=== PATIENT | male | born 1985 | race Hispanic/Latino ===

== ENCOUNTER 2018-12-18 12:20 | Emergency (ER) | payer BC, OTHER ==
--- NOTE | 2018-12-18 14:31 | ER ---
Nurse's Notes [facility] Name: Matthew Stafford Jr Age: 33 yrs Sex: Male : 1985 Arrival Date: 12/18/2018 Time: 12:22 Bed 12 Private MD: Diagnosis: Sprain of ankle Presentation: 12/18 12:33 Presenting complaint: Patient states: "I fell from a ladder about 3 ft yesterday". Pt aa5 c/o pain to right ankle and right foot. Denies head injury, denies LOC. Transition of care: patient was not received from another setting of care. Onset of symptoms was December 17, 2018. Risk Assessment: Do you want to hurt yourself or someone else? Patient reports no desire to harm self or others. Initial Sepsis Screen: Does the patient meet any 2 criteria? No. Patient's initial sepsis screen is negative. Does the patient have a suspected source of infection? No. Patient's initial sepsis screen is negative. Care prior to arrival: None. 12:33 Acuity: SUMANTH 4 aa5 12:33 Method Of Arrival: Wheelchair aa5 Triage Assessment: 12:35 General: Appears comfortable, Behavior is calm, cooperative. aa5 Historical: - Allergies: 12:35 No Known Allergies; aa5 - PMHx: 12:35 Anxiety; aa5 - PSHx: 12:35 Tonsillectomy; aa5 - Immunization history:: Adult Immunizations up to date. - Social history:: Smoking status: Patient/guardian denies using tobacco. - Ebola Screening: : No symptoms or risks identified at this time. Screenin:40 Abuse screen: Denies threats or abuse. Denies injuries from another. Nutritional ss screening: No deficits noted. Tuberculosis screening: Never had TB. Fall Risk None identified. Assessment: 12:40 General: Appears comfortable, Behavior is calm, cooperative. Pain: Complains of pain in aa5 right ankle and right foot Pain currently is 5 out of 10 on a pain scale. Quality of pain is described as throbbing, Is continuous, Aggravated by increased activity, weight bearing. Neuro: Level of Consciousness is awake, alert, obeys commands, Oriented to person, place, time, situation. Cardiovascular: Patient's skin is warm and dry. Respiratory: Airway is patent Respiratory effort is even, unlabored, Respiratory pattern is regular, symmetrical. GI: No signs and/or symptoms were reported involving the gastrointestinal system. : No signs and/or symptoms were reported regarding the genitourinary system. EENT: No signs and/or symptoms were reported regarding the EENT system. Derm: Skin is pink, warm \\T\\ dry. Musculoskeletal: Swelling present in dorsum of right foot and right ankle. Vital Signs: 12:34 BP 102 / 67; Pulse 88; Resp 16 S; Temp 98.0(TE); Pulse Ox 99% on R/A; Weight 81.65 kg aa5 (R); Height 5 ft. 7 in. (170.18 cm) (R); Pain 5/10; 12:34 Body Mass Index 28.19 (81.65 kg, 170.18 cm) aa5 ED Course: 12:22 Patient arrived in ED. as 12:33 Arm band placed on. aa5 12:34 Triage completed. aa5 12:35 Terri Kilgore RN is Primary Nurse. aa5 12:35 Yuniel Choi PA is PHCP. [facility] 12:35 Bandar Butler MD is Attending Physician. [facility] 13:54 X-ray completed. Portable x-ray completed in exam room. Patient tolerated procedure jb2 well. 13:58 Foot Right 3 View XRAY In Process Unspecified. EDMS 13:58 Ankle Right 3 View XRAY In Process Unspecified. EDMS 14:24 Patient has correct armband on for positive identification. Bed in low position. Call ss light in reach. 14:24 No provider procedures requiring assistance completed. Patient did not have IV access ss during this emergency room visit. walking boot applied to R leg. Patient tolerated well. 14:30 Ozzie Howell MD is Referral Physician. ahmet Administered Medications: No medications were administered Outcome: 14:30 Discharge ordered by . [facility] 14:40 Discharged to home ambulatory. ss 14:40 Condition: good 14:40 Discharge instructions given to patient, Instructed on discharge instructions, follow up and referral plans. Demonstrated understanding of instructions, follow-up care. 14:51 Patient left the ED. ss Signatures: Dispatcher [employer] EDMS Yuniel Choi PA PA [facility] Skip Sandoval jb2 Heather Vega Audri, RN RN aa5 Flavia Anguiano RN RN ss Corrections: (The following items were deleted from the chart) 14:41 14:40 Reassessment: Patient appears in no apparent distress at this time. Patient ss and/or family updated on plan of care and expected duration. Pain level reassessed. Patient is alert, oriented x 3, equal unlabored respirations, skin warm/dry/pink. dressing applied to affected toe. ss
--- NOTE | 2018-12-18 14:31 | EDPHYS ---
Physician Documentation [facility] Name: Matthew Stafford Jr Age: 33 yrs Sex: Male : 1985 Arrival Date: 12/18/2018 Time: 12:22 Bed 12 Private MD: ED Physician Bandar Butler HPI: 12/18 12:54 This 33 yrs old Male presents to ER via Wheelchair with complaints of Ankle jmm Injury. 12:54 The patient presents with an injury, pain, that is acute, swelling. Onset: The jmm symptoms/episode began/occurred acutely, 1 day(s) ago. Associated signs and symptoms: Pertinent positives: swelling. This is a 33 year old male with a history of anxiety that presents to the ED with complaints of right ankle swelling following a fall which occurred yesterday. Patient twisted his right ankle as he was stepping off a ladder yesterday. Denies other injury. . Historical: - Allergies: 12:35 No Known Allergies; aa5 - PMHx: 12:35 Anxiety; aa5 - PSHx: 12:35 Tonsillectomy; aa5 - Immunization history:: Adult Immunizations up to date. - Social history:: Smoking status: Patient/guardian denies using tobacco. - Ebola Screening: : No symptoms or risks identified at this time. ROS: 12:54 Constitutional: Negative for fever, chills, and weight loss, Cardiovascular: Negative jmm for chest pain, palpitations, and edema, Respiratory: Negative for shortness of breath, cough, wheezing, and pleuritic chest pain. 12:54 MS/extremity: Positive for pain, swelling. 12:54 All other systems are negative. Exam: 12:54 Constitutional: This is a well developed, well nourished patient who is awake, alert, jmm and in no acute distress. Head/Face: atraumatic. Eyes: EOMI, no conjunctival erythema appreciated ENT: Moist Mucus Membranes Neck: Trachea midline, Supple Chest/axilla: Normal chest wall appearance and motion. Cardiovascular: Regular rate and rhythm. No edema appreciated Respiratory: Normal respirations, no respiratory distress appreciated Abdomen/GI: Non distended, soft Back: Normal ROM Skin: General appearance color normal 12:54 Musculoskeletal/extremity: swelling noted to the right ankle mainly anterior medial region. No bony tenderness appreciated, full dorsalis pulse, compartments are soft, NVI. 12:54 Skin: Appearance: Color: normal in color. 12:54 Neuro: Orientation: is normal, Mentation: is normal, Memory: is normal. 12:54 Psych: Behavior/mood is pleasant, cooperative. Vital Signs: 12:34 BP 102 / 67; Pulse 88; Resp 16 S; Temp 98.0(TE); Pulse Ox 99% on R/A; Weight 81.65 kg aa5 (R); Height 5 ft. 7 in. (170.18 cm) (R); Pain 5/10; 12:34 Body Mass Index 28.19 (81.65 kg, 170.18 cm) aa5 MDM: 12:53 Patient medically screened. [facility] 14:29 Data reviewed: vital signs, nurses notes. Counseling: I had a detailed discussion with edilberto the patient and/or guardian regarding: the historical points, exam findings, and any diagnostic results supporting the discharge/admit diagnosis, radiology results, the need for outpatient follow up, to return to the emergency department if symptoms worsen or persist or if there are any questions or concerns that arise at home. ED course: Patient advised to follow up with ortho for reevaluation. Patient otherwise given strict return precautions. Patient understood and agrees with the plan of care. . 08 12:54 Order name: Foot Right 3 View XRAY [facility] 12/18 12:54 Order name: Ankle Right 3 View XRAY [facility] 12/18 14:06 Order name: Misc. Order: ORTHO BOOT; Complete Time: 14:12 [facility] Administered Medications: No medications were administered Disposition: 16:40 Co-signature as Attending Physician, Bandar Butler MD I agree with the assessment and kdr plan of care. Disposition: 12/18/18 14:30 Discharged to Home. Impression: Sprain of ankle. - Condition is Stable. - Discharge Instructions: Ankle Sprain. - Prescriptions for Ibuprofen 800 mg Oral Tablet - take 1 tablet by ORAL route every 8 hours As needed take with food; 30 tablet. - Medication Reconciliation Form, Thank You Letter, Antibiotic Education, Prescription Opioid Use form. - Follow up: Ozzie Howell MD; When: 2 - 3 days; Reason: Recheck today's complaints, Continuance of care, Re-evaluation by your physician. Signatures: Dispatcher [employer] EDMS Bandar Butler MD MD kdr Mickail, Joel, PA PA jmm Calderon, Audri, RN RN aa5 Flavia Anguiano RN RN ss Corrections: (The following items were deleted from the chart) 14:51 14:30 12/18/2018 14:30 Discharged to Home. Impression: Sprain of ankle. Condition is ss Stable. Forms are Medication Reconciliation Form, Thank You Letter, Antibiotic Education, Prescription Opioid Use. Follow up: Dr. Ozzie Howell; When: 2 - 3 days; Reason: Recheck today's complaints, Continuance of care, Re-evaluation by your physician. ahmet
--- NOTE | 2018-12-18 14:50 | RAD REPORT ---
EXAM DESCRIPTION: RAD - Foot Right 3 View - 12/18/2018 1:58 pm CLINICAL HISTORY: Fall from ladder, foot and ankle pain COMPARISON: None. FINDINGS: No fracture, dislocation or periosteal reaction. No acute bone or joint finding. No air or foreign body in the soft tissues. IMPRESSION: Negative right foot examination.
--- NOTE | 2018-12-18 14:51 | RAD REPORT ---
EXAM DESCRIPTION: RAD - Ankle Right 3 View - 12/18/2018 1:58 pm CLINICAL HISTORY: Fall from ladder, right foot and ankle pain COMPARISON: None. FINDINGS: No fracture, dislocation or periosteal reaction. No joint effusion seen. No joint space na rrowing. No soft tissue abnormality. IMPRESSION: Negative right ankle Repeat imaging of the right foot and right ankle could be performed in 5-7 days if the patient contin ues to show evidence of acute bony injury.
== END 2018-12-18 14:51 | disposition home or self-care (01) ==
LOC: ER 12:20
DX: S93.401A Sprain of unspecified ligament of right ankle, initial encounter (principal); X50.1XXA Overexertion from prolonged static or awkward postures, initial encounter
CPT/HCPCS: 99283

== ENCOUNTER 2019-12-03 19:03 | Emergency (ER) | payer BC, OTHER ==
--- NOTE | 2019-12-03 20:17 | EDPHYS ---
Physician Documentation [facility] Name: Matthew Stafford Jr Age: 34 yrs Sex: Male : 1985 Arrival Date: 12/03/2019 Time: 19:06 Bed 26 Private MD: ED Physician Bradly Rios HPI: 12/02 20:11 This 34 yrs old Male presents to ER via Ambulatory with complaints of Nausea, isacc Diarrhea. 20:11 The patient presents to the emergency department with nausea, diarrhea, that is isacc continuous, 1 month , after eating post 3 hrs. Onset: The symptoms/episode began/occurred 1 month(s) ago. Possible causes: unknown. The symptoms are aggravated by food , The symptoms are alleviated by nothing. Associated signs and symptoms: The patient has no apparent associated signs or symptoms. Severity of symptoms: At their worst the symptoms were mild moderate in the emergency department the symptoms have improved mildly. The patient has not experienced similar symptoms in the past. Historical: - Allergies: 19:19 No Known Allergies; ca1 - Home Meds: 19:19 None [Active]; ca1 - PMHx: 19:19 Anxiety; ca1 - PSHx: 19:19 Tonsillectomy; ca1 - Immunization history:: Adult Immunizations up to date. - Social history:: Smoking status: Patient denies any tobacco usage or history of. - Family history:: not pertinent. ROS: 20:11 Constitutional: Negative for fever, chills, and weight loss, Eyes: Negative for injury, isacc pain, redness, and discharge, ENT: Negative for injury, pain, and discharge, Neck: Negative for injury, pain, and swelling, Cardiovascular: Negative for chest pain, palpitations, and edema, Respiratory: Negative for shortness of breath, cough, wheezing, and pleuritic chest pain, Back: Negative for injury and pain, : Negative for injury, bleeding, discharge, and swelling, MS/Extremity: Negative for injury and deformity, Skin: Negative for injury, rash, and discoloration, Neuro: Negative for headache, weakness, numbness, tingling, and seizure, Psych: Negative for depression, anxiety, suicide ideation, homicidal ideation, and hallucinations, Allergy/Immunology: Negative for hives, rash, and allergies, Endocrine: Negative for neck swelling, polydipsia, polyuria, polyphagia, and marked weight changes, Hematologic/Lymphatic: Negative for swollen nodes, abnormal bleeding, and unusual bruising. 20:11 Abdomen/GI: Positive for nausea, diarrhea. Exam: 20:11 Constitutional: This is a well developed, well nourished patient who is awake, alert, isacc and in no acute distress. Head/Face: Normocephalic, atraumatic. Eyes: Pupils equal round and reactive to light, extra-ocular motions intact. Lids and lashes normal. Conjunctiva and sclera are non-icteric and not injected. Cornea within normal limits. Periorbital areas with no swelling, redness, or edema. ENT: Nares patent. No nasal discharge, no septal abnormalities noted. Tympanic membranes are normal and external auditory canals are clear. Oropharynx with no redness, swelling, or masses, exudates, or evidence of obstruction, uvula midline. Mucous membranes moist. Neck: Trachea midline, no thyromegaly or masses palpated, and no cervical lymphadenopathy. Supple, full range of motion without nuchal rigidity, or vertebral point tenderness. No Meningismus. Chest/axilla: Normal chest wall appearance and motion. Nontender with no deformity. No lesions are appreciated. Cardiovascular: Regular rate and rhythm with a normal S1 and S2. No gallops, murmurs, or rubs. Normal PMI, no JVD. No pulse deficits. Respiratory: Lungs have equal breath sounds bilaterally, clear to auscultation and percussion. No rales, rhonchi or wheezes noted. No increased work of breathing, no retractions or nasal flaring. Abdomen/GI: Soft, non-tender, with normal bowel sounds. No distension or tympany. No guarding or rebound. No evidence of tenderness throughout. Back: No spinal tenderness. No costovertebral tenderness. Full range of motion. Male : Normal genitalia with no discharge or lesions. Skin: Warm, dry with normal turgor. Normal color with no rashes, no lesions, and no evidence of cellulitis. MS/ Extremity: Pulses equal, no cyanosis. Neurovascular intact. Full, normal range of motion. Neuro: Awake and alert, GCS 15, oriented to person, place, time, and situation. Cranial nerves II-XII grossly intact. Motor strength 5/5 in all extremities. Sensory grossly intact. Cerebellar exam normal. Normal gait. Psych: Awake, alert, with orientation to person, place and time. Behavior, mood, and affect are within normal limits. Vital Signs: 19:17 BP 130 / 93; Pulse 75; Resp 15 S; Temp 97.8(TE); Pulse Ox 100% on R/A; Weight 83.91 kg ca1 (R); Height 5 ft. 7 in. (170.18 cm) (R); 19:34 BP 119 / 81; Pulse 79; Resp 18; Pulse Ox 99% on R/A; Pain 1/10; ks7 20:16 BP 121 / 84; Pulse 76; Resp 16; Temp 98.4(O); Pulse Ox 99% on R/A; Pain 0/10; ks7 19:17 Body Mass Index 28.97 (83.91 kg, 170.18 cm) ca1 MDM: 19:20 Patient medically screened. isacc 20:14 Differential diagnosis: gastroenteritis. Data reviewed: vital signs, nurses notes. Data isacc interpreted: desk monitor: not applicable for this patient encounter. rate is 79 beats/min, Pulse oximetry: on room air is 99 %. Counseling: I had a detailed discussion with the patient and/or guardian regarding: the historical points, exam findings, and any diagnostic results supporting the discharge/admit diagnosis, the need for outpatient follow up, for definitive care, a medical technologist. ED course: no toxic, well hydrated, abd benign. 12/02 20:11 Order name: PO challenge; Complete Time: 20:14 isacc Administered Medications: No medications were administered Disposition: 12/03/19 20:16 Discharged to Home. Impression: Diarrhea, unspecified. - Condition is Stable. - Discharge Instructions: Food Choices to Help Relieve Diarrhea, Adult, Chronic Diarrhea, Diarrhea, Adult, Diarrhea, Adult, [id number]. - Medication Reconciliation Form, Thank You Letter, Antibiotic Education, Prescription Opioid Use form. - Follow up: Private Physician; When: 2 - 3 days; Reason: Recheck today's complaints, Continuance of care, Re-evaluation by your physician. Follow up: Hanna Solorzano MD; When: 2 - 3 days; Reason: Recheck today's complaints, Re-evaluation by your physician. - Problem is new. - Symptoms have improved. Signatures: Dispatcher [employer] EDBradly Carroll MD MD cha Acob, Cheryl, RN Cinthya Murguia RN RN ks7 Corrections: (The following items were deleted from the chart) 20:29 20:16 12/03/2019 20:16 Discharged to Home. Impression: Diarrhea, unspecified. Condition ks7 is Stable. Forms are Medication Reconciliation Form, Thank You Letter, Antibiotic Education, Prescription Opioid Use. Follow up: Private Physician; When: 2 - 3 days; Reason: Recheck today's complaints, Continuance of care, Re-evaluation by your physician. Follow up: Hanna Solorzano; When: 2 - 3 days; Reason: Recheck today's complaints, Re-evaluation by your physician. Problem is new. Symptoms have improved. isacc
--- NOTE | 2019-12-03 20:17 | ER ---
Nurse's Notes [facility] Name: Matthew Stafford Jr Age: 34 yrs Sex: Male : 1985 Arrival Date: 12/03/2019 Time: 19:06 Bed 26 Private MD: Diagnosis: Diarrhea, unspecified Presentation: 12/02 19:17 Chief complaint: Patient states: N/V and diarrhea x 1 month. "Happens 3 hours after ca1 every time I eat" Denies fever. Coronavirus screen: Patient denies a cough. Patient denies shortness of breath or difficulty breathing. Patient denies measured and/or subjective temperature greater than 100.4F prior to today's visit. Patient denies travel on a cruise ship or to a country the [facility] currently lists as an affected area. Patient denies contact with known and/or suspected case of COVID-19. Proceed with normal triage. Ebola Screen: Patient negative for fever greater than or equal to 101.5 degrees Fahrenheit, and additional compatible Ebola Virus Disease symptoms Patient denies exposure to infectious person. Patient denies travel to an Ebola-affected area in the 21 days before illness onset. No symptoms or risks identified at this time. Initial Sepsis Screen: Does the patient meet any 2 criteria? No. Patient's initial sepsis screen is negative. Does the patient have a suspected source of infection? No. Patient's initial sepsis screen is negative. Risk Assessment: Do you want to hurt yourself or someone else? Patient reports no desire to harm self or others. Onset of symptoms was December 03, 2019. 19:17 Method Of Arrival: Ambulatory ca1 19:17 Acuity: SUMANTH 3 ca1 Triage Assessment: 19:33 General: Appears in no apparent distress. well groomed, Behavior is calm, cooperative. ks7 Pain: Complains of pain in abdomen Pain does not radiate. Pain currently is 1 out of 10 on a pain scale. at worst was 8 out of 10 on a pain scale. level that patient reports is acceptable is 1 out of 10 on a pain scale. Quality of pain is described as crampy, sharp, Pain began after eating Aggravated by eating. 19:34 GI: Reports lower abdominal pain, upper abdominal pain, diarrhea, nausea, vomiting. ks7 Historical: - Allergies: 19:19 No Known Allergies; ca1 - Home Meds: 19:19 None [Active]; ca1 - PMHx: 19:19 Anxiety; ca1 - PSHx: 19:19 Tonsillectomy; ca1 - Immunization history:: Adult Immunizations up to date. - Social history:: Smoking status: Patient denies any tobacco usage or history of. - Family history:: not pertinent. Screenin:35 Abuse screen: Denies threats or abuse. Nutritional screening: No deficits noted. ks7 Tuberculosis screening: No symptoms or risk factors identified. Fall Risk None identified. Assessment: 19:35 GI: Abdomen is non-distended, Bowel sounds present X 4 quads. Abd is soft and non ks7 tender. 20:15 General: PO challenge done. pt drank 8 oz H20. Denies N/V.. ks7 20:30 General: pt given materials and RX to collect stool sample at home and bring back to ks7 Lab. pt verbalized understanding.. Vital Signs: 19:17 BP 130 / 93; Pulse 75; Resp 15 S; Temp 97.8(TE); Pulse Ox 100% on R/A; Weight 83.91 kg ca1 (R); Height 5 ft. 7 in. (170.18 cm) (R); 19:34 BP 119 / 81; Pulse 79; Resp 18; Pulse Ox 99% on R/A; Pain 1/10; ks7 20:16 BP 121 / 84; Pulse 76; Resp 16; Temp 98.4(O); Pulse Ox 99% on R/A; Pain 0/10; ks7 19:17 Body Mass Index 28.97 (83.91 kg, 170.18 cm) ca1 ED Course: 19:06 Patient arrived in ED. ag3 19:18 Triage completed. ca1 19:19 Arm band placed on right wrist. ca1 19:20 Bradly Rios MD is Attending Physician. [facility] 19:33 Cinthya Villatoro, ANAIS is Primary Nurse. ks7 19:35 Patient has correct armband on for positive identification. Placed in gown. Bed in low ks7 position. Call light in reach. Side rails up X2. 19:35 No provider procedures requiring assistance completed. ks7 20:14 Patient did not have IV access during this emergency room visit. ks7 20:16 Hanna Solorzano MD is Referral Physician. isacc Administered Medications: No medications were administered Outcome: 20:16 Discharge ordered by . isacc 20:27 Discharged to home ambulatory. ks7 20:27 Condition: stable 20:27 Discharge instructions given to patient, Instructed on gave pt collection cup for stool sample. instructed pt to bring back to main lab with RX from MD. Demonstrated understanding of instructions, follow-up care. 20:29 Patient left the ED. ks7 Signatures: Bradly Rios MD MD cha Gomez, Alice ag3 Katia Beal RN RN ca1 Cinthya Villatoro RN RN ks7 Corrections: (The following items were deleted from the chart) 19:19 19:17 Chief complaint: Patient states: N/V and diarrhea x 1 month. Denies fever ca1 ca1 20:27 20:16 BP 121 / 84; Pulse 76bpm; Resp 16bpm; Pulse Ox 99% RA; Pain 0/10; ks7 ks7
[2019-12-03 20:37] VITALS: O2SAT 99
[2019-12-03 20:42] VITALS: BP 121/84; TEMP 98.4
== END 2019-12-03 20:29 | disposition home or self-care (01) ==
LOC: ER 19:03
DX: R19.7 Diarrhea, unspecified (principal)
CPT/HCPCS: 99281

== ENCOUNTER → 2023-07-25 | Emergency (ER) | payer BC ==
[~2023-07-25] MED LIST: FLUORESCEIN SODIUM 1 MG/WRAP ONE; GENTAMICIN 0.3% OPTH DROP 5ML ONE; Ringers Lactate 1,000 ML IV ONE; TETRACAINE HCL 0.5% 4ML OPTH ONE
--- OUTSIDE RECORDS SUMMARY | 2023-07-25 18:04 | XMS REPORT | Continuity of Care Document ---
Author Name Unknown Address [address] [facility]. [address] [place] [id number] [facility] thconnect Address [address] [facility] [address]. [address] [place] [address] Care Team Providers Care Senior Project Engineer Name Role Phone Provider, [facility] Attending Clinician Un available Debbie Brewer PA-C Attending Clinician DEBBIE BREWER Attending Clinician Unavailable Doctor Unassigned, [employer] Attending Clinician U navailable Payers Payer Name Policy Type Policy Number Effective Date Expirati on Date Source Problems Condition Name Condition Details Condition Category Status Onset Date Resolution Date Last Treatment Date Treating Clinician Comments Source No known active problems No known active problems Disease [facility] Allergies, Adverse Reactions, Alerts Allergy Name Allergy Type Status Severity Reaction(s) Onset Date Inactive Date Treating Clinician Comments Source NO KNOWN ALLERGIE S Drug Class Active [facility] Social History Social Habit Start Date Stop Date Quantity Comments Source Tobacco use and exposure 2020-09-25 00:00:00 2020-09-25 00:00:00 Never used [facility] Sex Assigned At 1985 00:00:00 1985 00:00:00 [facility] Smoking Status Start Date Stop Date Source Unknown if ever smoked [facility] Never smoker [facility] Medications Ordered Medication Name Filled Medication Name Start Date Stop Date Current Medication? Ordering Clinician Indication Dosage Frequency Signature (SIG) Comments Components Source promethazin e-dextromet horphan 6.25-15 mg/5 mL syrup 09-25 00:00: 00 10-10 04:59 :00 No [id number] 5mL Take 5 mL by mouth every 4 (four) hours as needed for Cough for up to 14 days. [facility] Vital Signs Vital Name Observation Time Observation Value Comments S ource Systolic blood pressure 2020-09-25 17:38:00 134 mm[Hg] [facility] acute hospital Diastolic blood pressure 2020-09-25 17:38:00 86 mm[Hg] [facility] [facility] Heart rate 2020-09-25 17:38:00 87 /min [facility] Body temperature 2020-09-25 17:38:00 36.89 Kamila [facility] Body height 2020-09-25 17:38:00 172.7 cm [facility] Body weight 2020-09-25 17:38:00 91.354 kg [facility] BMI 2020-09-25 17:38:00 30.62 kg/m2 [facility] Oxygen saturation in Arterial blood by Pulse oximetry 2020-09-25 17:38:00 97 /min [facility] acute hospital Procedures Procedure Date / Time Performed Performing Clinicia n Source ASSIGNMENT OF BENEFITS 2020-09-25 17:32:36 Docto r Unassigned, [employer] [facility] Encounters Start Date/Time End Date/Time Encounter Type Admission Type Attending Clinicians Care Facility Care Department Encounter ID Source 2020-09-25 12:33:42 2020-09-25 12:53:42 Urgent Care Provider, [facility] [address] [id number] [facility] 2020-09-25 12:20:00 2020-09-25 12:20:00 Outpatient R BREWER [facility] [id number] [facility] 2020-09-25 00:00:00 2020-09-25 00:00:00 Orders Only Doctor Unassigned, [employer] [facility] .[id number] [facility] 2020-09-25 00:00:00 2020-09-25 00:00:00 Letter (Out) Doctor Unassigned, [employer] [facility] [id number] [facility] 2020-09-25 00:00:00 2020-09-25 00:00:00 Letter (Out) Doctor Unassigned, [employer] [facility] [id number] [facility]
--- NOTE | 2023-07-25 21:40 | ER ---
Nurse's Notes [facility] Name: Matthew Stafford Jr Age: 38 yrs Sex: Male : 1985 Arrival Date: 07/25/2023 Time: 18:01 Bed 11 Private MD: Diagnosis: Foreign body in cornea, right eye, initial encounter Presentation: 07/24 18:16 Chief complaint: Patient states: "Two days ago I was at work and I felt something fall rs5 in my eye". Coronavirus screen: At this time, the client does not indicate any symptoms associated with coronavirus-19. Ebola Screen: No symptoms or risks identified at this time. The patient denies any loss of vision. Initial Sepsis Screen: Does the patient meet any 2 criteria? No. Patient's initial sepsis screen is negative. Does the patient have a suspected source of infection? No. Patient's initial sepsis screen is negative. Risk Assessment: Do you want to hurt yourself or someone else? Patient reports no desire to harm self or others. Onset of symptoms was July 25, 2023. 18:16 Method Of Arrival: Ambulatory rs5 18:16 Acuity: SUMANTH 3 rs5 22:06 Mechanism of Injury: foreign object on the right eye. ha1 Historical: - Allergies: 18:18 SHELLFISH; rs5 - Home Meds: 18:18 None [Active]; rs5 - PMHx: 18:18 Anxiety; rs5 - Immunization history:: Adult Immunizations up to date. - Social history:: Smoking status: Patient denies any tobacco usage or history of. Screenin:04 [facility] ED Fall Risk Assessment (Adult) History of falling in the last 3 months, ha1 including since admission No falls in past 3 months (0 pts) Confusion or Disorientation No (0 pts) Intoxicated or Sedated No (0 pts) Impaired Gait No (0 pts) Mobility Assist Device Used No (0 pt) Altered Elimination No (0 pt) Score/Fall Risk Level 0 - 2 = Low Risk Oriented to surroundings, Maintained a safe environment, Educated pt \\T\\ family on fall prevention, incl call for assistance when getting out of bed, Hourly rounding (assess needs \\T\\ fall precautionary measures) done. Abuse screen: Denies threats or abuse. Denies injuries from another. Nutritional screening: No deficits noted. Tuberculosis screening: No symptoms or risk factors identified. Assessment: 19:25 General: Appears uncomfortable, Behavior is calm, cooperative. Pain: Complains of pain ha1 in right eye Pain does not radiate. Pain currently is 5 out of 10 on a pain scale. Quality of pain is described as burning. Neuro: Level of Consciousness is awake, alert, obeys commands, Oriented to person, place, time, situation. Cardiovascular: Patient's skin is warm and dry. Respiratory: Airway is patent Respiratory effort is even, unlabored, Respiratory pattern is regular, symmetrical. EENT: Eyes with foreign body noted in outer aspect of conjuctiva of right eye Sclera/Cornea are reddened in outer aspect of conjuctiva of right eye and inner aspect of conjuctiva of right eye. Derm: Skin is pink, warm \\T\\ dry. Musculoskeletal: Circulation, motion, and sensation intact. Range of motion: intact in all extremities. 20:00 Reassessment: right eye being irrigated with LR. pt. tolerated well. ha1 21:00 Reassessment: Patient and/or family updated on plan of care and expected duration. Pain ha1 level reassessed. Patient is alert, oriented x 3, equal unlabored respirations, skin warm/dry/pink. waiting for irrigation to be completed. 21:20 Reassessment: completed eye irrigation Patient states feeling better. Patient states ha1 symptoms have improved. Vital Signs: 18:16 BP 130 / 90; Pulse 70; Resp 18; Temp 97.8(O); Pulse Ox 99% ; rs5 19:30 BP 122 / 88; Pulse 72; Resp 18 S; Temp 98.2; Pulse Ox 99% on R/A; ha1 20:00 BP 121 / 78; Pulse 71; Resp 17 S; Pulse Ox 99% on R/A; ha1 21:00 BP 120 / 81; Pulse 72; Resp 17 S; Temp 97.9; Pulse Ox 99% on R/A; ha1 Visual Acuity: 22:06 Both Eyes Visual acuity 20/20; Without Lenses; ha1 ED Course: 18:05 Patient arrived in ED. im 18:07 Bradly Freeman PA is PHCP. cp 18:07 Panchito Guidry DO is Attending Physician. cp 18:11 Arm band placed on right wrist. ha1 18:11 Patient has correct armband on for positive identification. Placed in gown. Bed in low ha1 position. Call light in reach. Side rails up X 1. 18:16 Tin Mcarthur, RN is Primary Nurse. rs5 18:18 Triage completed. rs5 21:37 Racheal Brown MD is Referral Physician. cp 22:05 No provider procedures requiring assistance completed. Patient did not have IV access ha1 during this emergency room visit. 22:06 Provided Education on: medication administration and eye protection . ha1 Administered Medications: 19:20 Drug: Tetracaine Ophthalmic Drops 0.5 % 1 drops Ophthalmic once {Note: administered by ha1 care provider Lydia .} Route: Ophthalmic; Site: right eye; 20:00 Follow up: Response: No adverse reaction ha1 21:55 Drug: Gentamicin Ophthalmic Drops 0.3 % 1 drops Ophthalmic once Route: Ophthalmic; ha1 Site: right eye; 22:03 Follow up: Response: No adverse reaction ha1 21:56 Not Given (Physician Discretion): gentamicinointment 0.3 % 0.5 inches Ophthalmic once; cp Right Eye Medication: 22:06 VIS not applicable for this client. ha1 Outcome: 21:39 Discharge ordered by MD. cp 22:05 Discharged to home ambulatory, with family, ha1 22:05 Condition: stable 22:05 Discharge instructions given to patient, Instructed on discharge instructions, follow up and referral plans. medication usage, Demonstrated understanding of instructions, follow-up care, medications, Prescriptions given X 2, 22:07 Patient left the ED. ha1 Signatures: Bradly Freeman PA PA cp Marie Adair RN RN [facility] Tin Mcarthur, ANAIS RN rs5 Anisa Nielsen Corrections: (The following items were deleted from the chart) 18:18 18:18 Allergies: No Known Allergies; rs5 rs5
--- NOTE | 2023-07-25 21:40 | EDPHYS ---
Physician Documentation [facility] Name: Matthew Stafford Jr Age: 38 yrs Sex: Male : 1985 Arrival Date: 07/25/2023 Time: 18:01 Bed 11 Private MD: ED Physician Panchito Guidry HPI: 07/24 18:30 This 38 yrs old Male presents to ER via Ambulatory with complaints of Eye cp Pain, Eye Swelling, Foreign Body In Eye. 18:30 The patient is experiencing foreign body sensation, to the right eye, caused by metal cp fragment. 18:30 Onset: The symptoms/episode began/occurred 2 day(s) ago. cp 18:30 Duration: the symptoms are continuous. Associated signs and symptoms: Pertinent cp positives: eye redness, Pertinent negatives: fever, drainage from eye. Patient does not utilize any form of vision correction. Historical: - Allergies: 18:18 SHELLFISH; rs5 - Home Meds: 18:18 None [Active]; rs5 - PMHx: 18:18 Anxiety; rs5 - Immunization history:: Adult Immunizations up to date. - Social history:: Smoking status: Patient denies any tobacco usage or history of. ROS: 18:35 Eyes: Positive for foreign body sensation, pain, redness, of the right eye, cp 18:35 Constitutional: Negative for chills, fever, cp 18:35 ENT: Negative for drainage from ear(s), ear pain, sore throat, difficulty swallowing, difficulty handling secretions, 18:35 Respiratory: Negative for cough, shortness of breath, wheezing, 18:35 Skin: Negative for cellulitis, rash, 18:35 Neuro: Negative for altered mental status, headache, weakness, 18:35 All other systems are negative, Exam: 18:40 Constitutional: The patient appears in no acute distress, alert, awake, non-toxic, well cp developed, well nourished, uncomfortable, 18:40 Head/Face: Normocephalic, atraumatic. cp 18:40 Eyes: Periorbital structures: appear normal, Pupils: equal, round, and reactive to light and accomodation, Extraocular movements: intact throughout, Conjunctiva: injected, in the right eye, Corneas: abrasion, that is small, foreign body, on the right, at 5 o'clock, a piece of metal, a fluorescein strip employed to appreciate the findings, Sclera: no appreciated abnormality, Lids and lashes: appear normal, bilaterally, 18:40 ENT: External ear(s): are unremarkable, Nose: is normal, Mouth: Lips: moist, Oral mucosa: pink and intact, moist, Posterior pharynx: Airway: no evidence of obstruction, patent, 18:40 Neck: ROM/movement: is normal, is supple, without pain, no range of motions limitations, Lymph nodes: no appreciated lymphadenopathy, 18:40 Chest/axilla: Inspection: normal, 18:40 Cardiovascular: Rate: normal, Rhythm: regular, 18:40 Respiratory: the patient does not display signs of respiratory distress, Respirations: normal, no use of accessory muscles, no retractions, labored breathing, is not present, Breath sounds: are clear throughout, 18:40 Skin: cellulitis, is not appreciated, no rash present. Vital Signs: 18:16 BP 130 / 90; Pulse 70; Resp 18; Temp 97.8(O); Pulse Ox 99% ; rs5 19:30 BP 122 / 88; Pulse 72; Resp 18 S; Temp 98.2; Pulse Ox 99% on R/A; ha1 20:00 BP 121 / 78; Pulse 71; Resp 17 S; Pulse Ox 99% on R/A; ha1 21:00 BP 120 / 81; Pulse 72; Resp 17 S; Temp 97.9; Pulse Ox 99% on R/A; ha1 Visual Acuity: 22:06 Both Eyes Visual acuity 20/20; Without Lenses; ha1 MDM: 18:15 Patient medically screened. 19:00 Differential diagnosis: Corneal abrasion of right eye. Corneal ulcer of right eye. cp Foreign body in right eye. Acute iritis of right eye. Chemical conjunctivitis in right eye. Allergic conjunctivitis in right eye. Infectious conjunctivitis in right eye. 21:38 Data reviewed: vital signs, nurses notes. 21:38 I considered the following discharge prescriptions or medication management in the emergency department Medications were administered in the Emergency Department. See MAR. 21:38 Counseling: I had a detailed discussion with the patient and/or guardian regarding the historical points, exam findings, and any diagnostic results supporting the discharge/admit diagnosis, the need for outpatient follow up, an opthalmologist, to return to the emergency department if symptoms worsen or persist or if there are any questions or concerns that arise at home. Response to treatment: the patient's symptoms have markedly improved after treatment, and as a result, I will discharge patient. 07/24 18:21 Order name: Eye Tray; Complete Time: 18:50 cp 07/24 18:21 Order name: Fluoresene Opth strip; Complete Time: 18:50 cp 07/24 18:21 Order name: Visual Acuity; Complete Time: 18:50 cp 07/24 19:19 Order name: Misc. Order: please flush eye with lactated ringers and adele lense; cp Complete Time: 19:31 Administered Medications: 19:20 Drug: Tetracaine Ophthalmic Drops 0.5 % 1 drops Ophthalmic once {Note: administered by [facility] care provider Page .} Route: Ophthalmic; Site: right eye; 20:00 Follow up: Response: No adverse reaction [facility] 21:55 Drug: Gentamicin Ophthalmic Drops 0.3 % 1 drops Ophthalmic once Route: Ophthalmic; [facility] Site: right eye; 22:03 Follow up: Response: No adverse reaction [facility] 21:56 Not Given (Physician Discretion): gentamicinointment 0.3 % 0.5 inches Ophthalmic once; cp Right Eye Disposition: 07/25 19:45 I was immediately available on-site in the Emergency Department for consultation in the wy3 care of the patient. Disposition Summary: 07/25/23 21:39 Discharge Ordered Notes: Location: Home cp Problem: new cp Symptoms: have improved cp Condition: Stable cp Diagnosis - Foreign body in cornea, right eye, initial encounter cp Followup: cp - With: Racheal Brown MD - When: 1 - 2 days - Reason: Recheck today's complaints Discharge Instructions: - Discharge Summary Sheet cp Forms: - Medication Reconciliation Form cp - Thank You Letter cp - Antibiotic Education cp - Prescription Opioid Use cp - Patient Portal Instructions cp - Leadership Thank You Letter cp Prescriptions: - Gentamicin 0.3 % Ophthalmic drops - instill 1 drop OPHTHALMIC route every 4 hours for 7 days; 1 unit; Refills: 0, cp Product Selection Permitted - Ibuprofen 800 mg Oral Tablet - take 1 tablet ORAL route every 8 hours As needed take with food; 30 tablet; cp Refills: 0, Product Selection Permitted Signatures: Bradly Freeman PA PA cp Sims, Marcus, DO DO ms3 Marie Adair RN RN ha1 Tin Mcarthur RN RN rs5 Corrections: (The following items were deleted from the chart) 07/24 18:18 18:18 Allergies: No Known Allergies; rs5 rs5
[2023-07-25 23:05] VITALS: BP 120/81; TEMP 97.9; O2SAT 99
== END ==
LOC: ER 18:01
DX: T15.01XA Foreign body in cornea, right eye, initial encounter (principal); Z91.013 Allergy to seafood
CPT/HCPCS: 99283; J7120